=== PATIENT | female | born 1990 | race Caucasian/White ===

== ENCOUNTER 2024-12-16 16:31 | Emergency (ER) | payer OTHER, SELFPAY ==
--- NOTE | ~2024-12-16 | XR_ITS ---
CLINICAL HISTORY: sob fevers 2 view chest x-ray Comparison: None provided Findings: The lungs are clear. Heart size is normal. No acute fracture. IMPRESSION: 1. No acute findings. This document has been electronically signed by: Heavenly Mireles MD on 12/16/2024 18:11:50
[2024-12-16 16:54] VITALS: PULSE 75; RESP 16; TEMP 36.3; O2SAT 100; BMI 24.0
--- NOTE | 2024-12-16 16:55 | ED.GENADULT ---
HPI - General Adult General Chief complaint: Upper Respiratory Symptoms Stated complaint: SOB, body aches, fever Time Seen by Provider: 12/16/24 20:16 Source: patient Mode of arrival: ambulatory Limitations: no limitations History of Present Illness ED Provider: dionisio moore HPI narrative: 34-year-old female here today with 3 days of headache body aches fevers chills sore throat cough. Denies any abdominal pain nauseousness vomiting or diarrhea denies any respiratory distress. Works at the [employer] at night. Feels like she has just run town. Gradual onset of symptoms Related Data Previous Rx's ?Medication ?Instructions ?Recorded benzonatate 200 mg capsule 200 mg PO BID PRN cough #20 caps 12/16/24 ibuprofen 600 mg tablet 600 mg PO Q8H PRN fever or pain 12/16/24 #20 tabs Allergies Allergy/AdvReac Type Severity Reaction Status Date / Time No Known Allergies Allergy Verified 12/16/24 16:56 Review of Systems Review of Systems: Constitutional : Positive Fever, positive Chills ENT/Mouth : Positive sore throat, No Rhinorrhea Eyes: No Eye Pain, No Swelling, No Redness Cardiovascular : No Chest Pain, No SOB Respiratory : Positive Cough, No Sputum Gastrointestinal : No Nausea, No Vomiting, No Diarrhea, No abdominal Pain Genitourinary : No Dysuria, No Hematuria Musculoskeletal : No joint pain, positive Myalgias, No Joint Swelling Skin : No Skin Lesions, positive skin rash Neuro : No Weakness, No Numbness, No Headache All other systems reviewed and are negative [facility] Social History Social History Advance Directives: No Advance Directives Information Provided: Yes Physical Exam ED Exam Exam: Appearance: Alert. Oriented X3. No acute distress. Eyes: Pupils equal, round and reactive to light. ENT: Pharynx erythema no exudate uvula midline no oropharyngeal edema no trismus no stridor Neck: Normal inspection. Neck supple. CVS: Normal heart rate and rhythm. Pulses normal. Positive nasal congestion noted Respiratory: Rhonchi throughout no cyanosis no accessory muscle use noted. Breath sounds normal. Abdomen: Soft and nontender. non distender normal BS Skin: Skin warm and dry. Normal skin color. Extremities: No lower extremity edema. No calf ttp FROM of extemities Neuro: Oriented X 3. Vital Signs: Vital Signs - 24 hr 12/16/24 16:54 Temperature 97.3 F Pulse Rate 75 Respiratory Rate 16 Pulse Oximetry 100 Oxygen Delivery Method Room Air BMI result Body Mass Index 24.0 Course Course Course Narrative: This is a Rapid Medical Examination (RME) performed by Juventino Barlow PA-C in triage. Full HPI, ROS, assessment and treatment plan per primary provider in the Main ED. Hx: 34 yo F here for eval of cough, sore throat, sob, fevers, body aches x1 wk. Plan: viral/strep swabs, cxr Medical Decision Making Medical Decision Making MDM Narrative: COVID flu negative. Patient's vital signs are stable. She is afebrile. Symptomatic treatment note for work follow up with her primary care doctor take medication as directed probably viral etiology in nature chest x-ray unremarkable Differential Diagnosis Differential Diagnoses: The differential diagnosis associated with the presentation includes COVID Flu Influenza Viral syndrome Lab Data Labs: Lab Results 12/16/24 Range/Units 17:00 COVID-19 (MICHELLE) Negative (Negative) COVID-19 Clin Com See Note Influenza Type A (HELLEN) Negative (Negative) Influenza Type B (HELLEN) Negative (Negative) Influenza A & B Note See Note S. pyogenes GrpA HELLEN Negative (Negative) Discharge Plan Discharge Clinical Impression: URI (upper respiratory infection), Myalgia Patient Disposition: Home, Self-Care Prescriptions: New ibuprofen 600 mg tablet 600 mg PO Q8H PRN (Reason: fever or pain) Qty: 20 0RF benzonatate 200 mg capsule 200 mg PO BID PRN (Reason: cough) Qty: 20 0RF Stand Alone Forms: Work/School Release Print Language: Malay
[2024-12-16 17:22] LABS: IDNOW Serial# 58CA691E; Strep A Nucleic Acid Negative (Negative)
[2024-12-16 17:31] LABS: COVID-19 Test Negative (Negative); IDNOW Serial# 152EDE1D; IDNOW Serial# 16C4AD1C; Influenza B2 Negative (Negative)
--- OUTSIDE RECORDS SUMMARY | 2024-12-16 19:59 | XMS_ITS | Clinical Summary ---
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 Name Role Phone Emile Islas MD Primary Care Provider Unavaila ble Surgical History Surgery Date Site/Laterality Comments OTHER SURGICAL HISTORY PROCEDURE: DENIES PREVIOUS SURGERY Medical History Medical History Date Comments Positive HU (antinuclear antibody) 03/11/2014 DX:Positive HU (antinuclear antibody) Family History Medical History Relation Name Comments Other cancer Brother 1 Down's Syndrome Other: fibromyalgia Mother Other: lupus Mother's side 1 Mothers aunt Relation Name Status Comments Brother 1 Brother 2 Mother Mother's side 1 Mother's side 2 Social History Tobacco Use Types Packs/Day Years Used Date Smoking Tobacco: Never Smokeless Tobacco: Never Alcohol Use Standard Drinks/Week Comments Yes 0 (1 standard drink = 0.6 oz pur e alcohol) Comments Unknown Sex and Gender Information Value Date Recorded Sex Assigned at Not on file Legal Sex Female 10:01 PM EST Gender Identity Not on file Sexual Orientation Not on file Obstetrics History Plan of Treatment Health Maintenance Due Date Last Done Comments Hepatitis B Vaccines (1 of 3 - 19+ 3-dose series) 2009 Cervical Cancer Screening: P ap Smear 2011 HPV Vaccines (2 - 3-dose series) 12/14/2013 11/17/19 14 DTaP,Tdap,and Td Vaccines (2 - Td or Tdap) 03/09/2024 03/09/2014 Depression Screening 04/07/2024 COVID-19 Vaccine (2023-2 5 season) 2024 Influenza Vaccine (#1) 2024 03/09/2014 HIB Vaccines Aged Out No longer eligi ble based on patient's age to complete this topic Hepatitis A Vaccines Aged Out No long er eligible based on patient's age to complete this topic IPV Vaccines Aged Out No longer eligi ble based on patient's age to complete this topic MMR Vaccines Aged Out No longer eligi ble based on patient's age to complete this topic Meningococcal ACWY Vaccine Aged Out N o longer eligible based on patient's age to complete this topic Meningococcal B Vaccine Aged Out No l onger eligible based on patient's age to complete this topic Pneumococcal Vaccine: Pediat rics (0 to 5 Years) and At-Risk Patients (6 to 49 Years) Aged Out No longer eligi ble based on patient's age to complete this topic RSV Immunization Patients Un aida 20 months Aged Out No longer eligible b ased on patient's age to complete this topic Varicella Vaccines Aged Out No longer eligible based on patient's age to complete this topic Care Teams Splitting Machine Operator Helper Relationship Specialty Start Date End Date Emile Islas MD PCP - General Internal Medicine 07/17/16
--- NOTE | 2024-12-16 20:49 | PC.NURSE ---
Patient requesting pain medications prior to discharge. Provider notified, awaiting response.
[2024-12-16 21:20] VITALS: BP 132/78; PULSE 72; RESP 16; TEMP 36.6; O2SAT 100
== END 2024-12-16 21:20 | disposition home or self-care (01) ==
PROVIDERS: Physician Assistant Medical; Emergency Provider Student in an Organized Health Care Education/Training Program; PCP Nurse Practitioner Family
DX: J06.9 Acute upper respiratory infection, unspecified (principal); R06.02 Shortness of breath; M79.10 Myalgia, unspecified site; R50.9 Fever, unspecified; Z11.52 Encounter for screening for COVID-19; Z79.899 Other long term (current) drug therapy
CPT/HCPCS: 71046; 87502; 87635; 87651; 99283

== ENCOUNTER → 2024-12-16 16:56 | Outpatient (BNV) | payer OTHER, SELFPAY | PROVIDERS: Visit Provider Radiology Diagnostic Radiology | DX: R06.02 Shortness of breath (principal) | CPT/HCPCS: 71046 ==